=== PATIENT | female | born 1960 | race Caucasian/White ===

== ENCOUNTER → 2020-08-11 | Outpatient (CLI) | payer OTHER ==
[~2020-08-11] MED LIST: ALLERGY RELIEF180 MG PO; BIOTIN2500 MCG PO; ELIQUIS 2.5 MG2.5 MG PO; ESTRACE 1 MG TAB1 MG PO; HYDROXYZINE HCL25 MG PO; LEVOTHYROXINE137 MCG PO; TYLENOL 500 MG500 MG PO; VITAMIN D350 MCG PO; WELLBUTRIN 100100 MG PO; [UNRECOGNIZED DRUG - CODE] PO
== END ==
LOC: MAMO 12:33
DX: Z12.31 Encounter for screening mammogram for malignant neoplasm of breast (principal); Z98.890 Other specified postprocedural states
CPT/HCPCS: 77063; 77067

== ENCOUNTER → 2021-11-08 | Outpatient (CLI) | payer OTHER | LOC: MAMO 14:52 | DX: Z12.31 Encounter for screening mammogram for malignant neoplasm of breast (principal) | CPT/HCPCS: 77063; 77067 ==